=== PATIENT | female | born 1960 | race Caucasian/White ===

== ENCOUNTER 2020-04-26 23:59 | Observation (INO) ==
[2020-04-27] MEDS ORDERED: DEXTROSE 50% 25 GM/50 ML VIAL IV PRN (03:42)
[2020-04-27] MEDS ORDERED: BISACODYL 5 MG TABLET PO PRN (03:42)
[2020-04-27] MEDS ORDERED: DOCUSATE SODIUM 100 MG CAPSULE PO PRN (03:42)
[2020-04-27] MEDS ORDERED: GLUCAGON 1 MG VIAL IM PRN (03:42)
[2020-04-27] MEDS ORDERED: ONDANSETRON 4 MG/2 ML VIAL IV PRN (03:42)
[2020-04-27] MEDS ORDERED: traMADol 50 MG TABLET PO PRN (03:48)
[2020-04-27] MEDS ORDERED: ENOXAPARIN 40 MG/0.4 ML SYRINGE SUBCUT SCH (04:00)
[2020-04-27] MEDS ORDERED: FUROSEMIDE 20 MG/2 ML VIAL IV ONE (04:16)
[2020-04-27 05:47] LABS: Risk Ratio 3.1; VLDL CHOLESTEROL 24.6 MG/DL
[2020-04-27] MEDS ORDERED: SODIUM CHLORIDE 0.9% 1,000 ML IV SCH (08:30)
[2020-04-27] MEDS ORDERED: RIVAROXABAN 15 MG TABLET PO ONE (09:55)
[2020-04-27 10:11] LABS: Basophils % 0.6 % (0.0-0.8); Eosinophils # 0.1 10*3/uL (0.0-0.87); Eosinophils % 1.3 % (0.00-10.9); Hematocrit 35.1 VOL% (35.7-47.0); Hemoglobin 11.6 GM/DL (12.0-16.0); Immature Granulocytes % 0.2 %; Immature Granulocytes Absolute 0.01 #; Lymphocytes # 1.3 10*3/uL (1.4-4.0); Lymphocytes % 20.9 % (21.3-54.2); Mean Corpuscular Volume 85.6 FL (87-102); Mean Platelet Volume 9.5 FL (9.6-12.0); Monocytes % 8.9 % (1.7-12.7); Neutrophils % 68.1 % (38.7-73.9); Platelet Count 201 T/CUMM (130-400); Red Cell Distribution Width 13.7 % (9.3-17.3); White Blood Count 6.3 T/CUMM (4-12)
[2020-04-27 10:26] LABS: Calcium 8.9 MG/DL (8.5-10.1); Osmolality,Calculated 280.7 MOS/KG (273-304)
[2020-04-27 10:39] LABS: ABG Base Excess -0.9 MMOL/L (-2.5-2.5); ABG HCO3 19.1 MMOL/L (20-26); ABG PCO2 21.9 MM HG (35-48); ABG PH 7.558 (7.35-7.45); ABG TCO2 19.8 MMOL/L (23-27)
[2020-04-27 11:12] LABS: ABG Oxygen Saturation 97.3 % (95-100)
[2020-04-27] MEDS: amLODIPine 10 MG TABLET PO SCH (11:24)
[2020-04-27] MEDS: GABAPENTIN 300 MG CAPSULE PO SCH (11:25)
[2020-04-27] MEDS: ASPIRIN CHEW 81 MG TABLET PO SCH (11:25)
[2020-04-27 11:54] LABS: Bilirubin,Urine Negative (Negative); Blood, Urine Small mg/dL (Negative); Glucose,Urine (UA) Negative (Negative); Ketones,Urine Negative (Negative); Mucus,Urine Occasional /LPF (Occasional); Nitrite,Urine Negative (Negative); Protein,Urine Negative; RBC,Urine 1 /HPF (0-4); Squamous Epithelial Cell,Urine Occasional /HPF (0-10); Urine Appearance CLEAR (Clear); Urine Color Yellow (Yellow); Urine Specific Gravity 1.046 (1.001-1.035); Urine Urobilinogen < 2.0 EU/DL (0.2-1.0); WBC,Urine 1 /HPF (0-6)
[2020-04-27] MEDS ORDERED: INFLUENZA VIRUS VACCINE 0.5 ML SYRINGE IM ONE (13:44)
[2020-04-27] MEDS: RIVAROXABAN 15 MG TABLET PO SCH (16:16)
[2020-04-27] MEDS ORDERED: BACLOFEN 10 MG TABLET PO SCH (21:00)
[2020-04-27] MEDS ORDERED: GABAPENTIN 400 MG CAPSULE PO SCH (21:00)
[2020-04-27] MEDS ORDERED: ROSUVASTATIN 20 MG TABLET PO SCH (21:00)
[2020-04-28 05:31] LABS: Basophils % 0.5 % (0.0-0.8); Eosinophils # 0.1 10*3/uL (0.0-0.87); Hematocrit 33.5 VOL% (35.7-47.0); Immature Granulocytes % 0.3 %; Immature Granulocytes Absolute 0.02 #; Lymphocytes # 1.6 10*3/uL (1.4-4.0); Lymphocytes % 26.5 % (21.3-54.2); Mean Corpuscular HGB Conc 32.8 GM/DL (32-36); Mean Corpuscular Volume 87.2 FL (87-102); Mean Platelet Volume 9.8 FL (9.6-12.0); Monocytes % 7.8 % (1.7-12.7); Neutrophils % 62.9 % (38.7-73.9); Platelet Count 175 T/CUMM (130-400); Red Blood Count 3.84 MC/CUMM (3.8-5.5); Red Cell Distribution Width 13.6 % (9.3-17.3); White Blood Count 6.1 T/CUMM (4-12)
[2020-04-28 05:57] LABS: Calcium 8.5 MG/DL (8.5-10.1); Osmolality,Calculated 282.5 MOS/KG (273-304)
[2020-04-28] MEDS: ASPIRIN CHEW 81 MG TABLET PO SCH (10:49)
[2020-04-28] MEDS: RIVAROXABAN 15 MG TABLET PO SCH ×2 (10:49→17:04)
[2020-04-28] MEDS: GABAPENTIN 300 MG CAPSULE PO SCH (10:50)
[2020-04-28] MEDS: amLODIPine 10 MG TABLET PO SCH (10:50)
[2020-04-28 16:02] VITALS: BP 109/62
[2020-05-01 11:16] LABS: Protein C Activity Plasma 116 % (70 - 150)
[2020-05-01 21:06] LABS: Protein S Activity Plasma 112 % (65 - 160)
[2020-05-05 18:16] LABS: FACV Specimen Whole Blood
== END 2020-04-28 17:38 | disposition home or self-care (01) ==
LOC: SUATTDRO 04-27 02:30 → N.TELEN 04-27 02:30 → INTOOBSV 04-27 02:30
PROVIDERS: ADMIT Internal Medicine; ATTEND Internal Medicine